=== PATIENT | male | born 1990 | race Caucasian/White ===

== ENCOUNTER 2016-06-18 07:21 | Emergency (ER) | payer BC, OTHER ==
[~2016-06-18] VITALS: Wt 91.0 kg
[2016-06-18] MEDS ORDERED: LIDOCAINE 1% (MDV) 20 ML INJ SC ONE (08:30)
--- NOTE | 2016-06-18 09:44 | RADRPT ---
PROCEDURE: XR left Hand. CLINICAL INDICATION: Left hand pain TECHNIQUE: Three views of the left hand were obtained. COMPARISON: No prior studies are available for comparison. FINDINGS: There is no evidence of acute fracture. Joint spaces are preserved. The soft tissues are grossly u nremarkable. IMPRESSION: No radiographic evidence of acute osseous abnormality of the left hand. RPTAT: UU .Aman Baca MD, MD Date Time Electronically viewed and signed by .Aman Baca MD, on 06/18/2016 09:43 .K/
[2016-06-18] MEDS ORDERED: CEPH-443 PO (09:54)
[2016-06-18] MEDS ORDERED: ACET325T33 PO (09:54)
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
== END 2016-06-18 10:00 | disposition home or self-care (01) ==
LOC: FTE 07:21
DX: S01.81XA Laceration without foreign body of other part of head, initial encounter (principal); S80.211A Abrasion, right knee, initial encounter; S80.212A Abrasion, left knee, initial encounter; V18.9XXA Unspecified pedal cyclist injured in noncollision transport accident in traffic accident, initial encounter

== ENCOUNTER 2016-06-25 11:32 | Emergency (ER) | payer BC ==
[~2016-06-25] VITALS: Ht 165.1 cm; Wt 62.5 kg
[~2016-06-25 11:32] MED LIST: ACET325T33 PO; CEPH-443 PO
[2016-06-25 11:37] VITALS: Ht 165.1 cm; Wt 62.5 kg
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
== END 2016-06-25 12:29 | disposition home or self-care (01) ==
LOC: FTE 11:32
DX: Z48.02 Encounter for removal of sutures (principal)
CPT/HCPCS: 99281

== ENCOUNTER 2017-02-04 10:50 | Emergency (ER) | payer BC ==
[~2017-02-04] VITALS: Wt 62.4 kg
[2017-02-04] MEDS ORDERED: ONDANSETRON 4 MG INJ IV STA (11:42)
[2017-02-04] MEDS ORDERED: SOD CHLORIDE 0.9% 1,000 ML IV STA (11:42)
[2017-02-04] MEDS ORDERED: morphine 4 MG/ML VIAL IV STA (11:42)
[2017-02-04 11:54] LABS: BASOPHIL # 0.1 10^3/ul (0.0-0.1); BASOPHILS % 0.5 % (0.0-2.0); EOSINOPHILS # 0.1 10^3/ul (0.0-0.5); EOSINOPHILS % 0.5 % (0.0-7.0); HEMATOCRIT 51.3 % (42.0-52.0); HEMOGLOBIN 18.1 g/dl (14.0-18.0); LYMPHOCYTES % 8.2 % (15.0-51.0); MEAN CORPUSCULAR HEMOGLOBIN 31.9 pg (29.0-33.0); MEAN CORPUSCULAR HGB CONC 35.3 g/dl (32.0-37.0); MEAN CORPUSCULAR VOLUME 90.3 fl (82.0-101.0); MONOCYTE # 1.1 10^3/ul (0.3-0.9); MONOCYTES % 8.5 % (0.0-11.0); NEUTROPHIL # 10.3 10^3/ul (1.6-7.5); NEUTROPHILS % 81.9 % (39.0-77.0); PLATELET COUNT 231 10^3/UL (140-415); RED BLOOD COUNT 5.68 10^6/ul (4.70-6.10); RED CELL DISTRIBUTION WIDTH 12.1 % (11.5-14.5); WHITE BLOOD COUNT 12.6 10^3/ul (4.8-10.8)
[2017-02-04 12:15] LABS: INR 0.95; PROTIME 12.7 Sec (12.2-14.2)
[2017-02-04 12:16] LABS: PARTIAL THROMBOPLASTIN TIME 26.1 Sec (25.0-35.0)
[2017-02-04 12:17] LABS: ALBUMIN 5.1 g/dl (3.3-4.9); ALBUMIN/GLOBULIN RATIO 1.21; BILIRUBIN,INDIRECT 0.8 mg/dl (0-1.1); BILIRUBIN,TOTAL 0.8 mg/dl (0.2-1.3); CALCIUM 9.3 mg/dl (8.4-10.2); CREATININE 0.75 mg/dl (0.61-1.24); POTASSIUM 5.2 mmol/L (3.5-5.1); TOTAL PROTEIN 9.3 g/dl (6.1-8.1)
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
[2017-02-04] MEDS ORDERED: KETOROLAC 30 MG INJ IV STA (13:27)
[2017-02-04] MEDS ORDERED: HYDR-906 PO (13:30)
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
--- NOTE | 2017-02-04 14:54 | RADRPT ---
PROCEDURE: XR Right Ankle. CLINICAL INDICATION: Right ankle pain. TECHNIQUE: 3 views. Frontal, lateral, and oblique. COMPARISON: None. FINDINGS: There is no fracture or dislocation. There is lateral soft tissue swelling. Articular surfaces are intact. There is no lytic or blastic lesion. There is no radiopaque foreign body. IMPRESSION: 1. Lateral soft tissue swelling. 2. Otherwise normal images of the right ankle. RPTAT: QQ .Aram Ojeda MD, MD Date Time Electronically viewed and signed by .Aram Ojeda MD, on 02/04/2017 14:54 .R/
[2017-02-04 14:56] VITALS: BP 127/65; PULSE 66; RESP 16; TEMP 98.3
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
== END 2017-02-04 14:58 | disposition home or self-care (01) ==
LOC: E/R 10:50
DX: S42.021A Displaced fracture of shaft of right clavicle, initial encounter for closed fracture (principal); S02.40DA Maxillary fracture, left side, initial encounter for closed fracture; R93.0 Abnormal findings on diagnostic imaging of skull and head, not elsewhere classified; R07.9 Chest pain, unspecified; V13.4XXA Pedal cycle driver injured in collision with car, pick-up truck or van in traffic accident, initial encounter
CPT/HCPCS: 70450; 70486; 71250; 73610; 80053; 85025; 85610; 85730; 93005; 96374; 96375; 99285; J1885; J2270; J2405; J7030

== ENCOUNTER 2017-03-15 14:30 | Emergency (ER) | payer BC ==
[~2017-03-15] VITALS: Ht 167.6 cm; Wt 62.6 kg
[~2017-03-15 14:30] MED LIST changes: +HYDR-906 PO
[2017-03-15 14:34] VITALS: Ht 167.6 cm; Wt 62.6 kg
[2017-03-15] MEDS ORDERED: LIDOCAINE 1% (MDV) 20 ML INJ SC ONE (16:30)
[2017-03-15] MEDS ORDERED: CEPH-443 PO (17:22)
[2017-03-15] MEDS ORDERED: IBUP800T25 PO (17:22)
[2017-03-15] MEDS ORDERED: SULF1TAB31 PO (17:22)
--- NOTE | 2017-03-15 17:45 | ERD ---
ER Documentation Chief Complaint Chief Complaint right axilla abscess HPI 26-year-old male complaining of painful bump on his right axillary area. Patient states that he noticed a pimple in the area 3 days ago, and last night the pain has become very intense, and the area has turned "purple". Patient had right clavicle surgery 1 month ago, has been in sling for his right arm in this time. Denies fever or chills. Denies drainage. ROS All systems reviewed and are negative except as per history of present illness. Medications Home Meds Active Scripts Ibuprofen* (Motrin*) 800 Mg Tab, 800 MG PO Q6H Y for PAIN AND OR ELEVATED TEMP, #30 TAB Prov:SERENE GOMEZ DRAWING HAND 03/15/17 Sulfamethoxazole/Trimethoprim* (Bactrim Ds* Tablet) 1 Each Tablet, 1 TAB PO BID , #14 TAB Prov:SERENE GOMEZ NP 03/15/17 Cephalexin* (Keflex*) 500 Mg Capsule, 500 MG PO QID for 7 Days, CAP Prov:SERENE GOMEZ NP 03/15/17 Hydrocodone/Acetaminophen ([place] 5-325 Tablet) 1 Each Tablet, 1 EACH PO Q6, #20 TAB Prov:RADHA ALBERT 02/04/17 Acetaminophen* (Tylenol*) 325 Mg Tablet, 2 TAB PO Q8 Y for PAIN AND OR ELEVATED TEMP, #20 TAB Prov:BENTON HARTMAN PA-C 06/18/16 Cephalexin* (Keflex*) 500 Mg Capsule, 500 MG PO QID for 7 Days, CAP Prov:BENTON HARTMAN PA-C 06/18/16 Allergies Allergies: Coded Allergies: No Known Allergy (Unverified , 06/25/16) PMhx/Soc History of Surgery: No Anesthesia Reaction: No Hx Neurological Disorder: No Hx Respiratory Disorders: No Hx Cardiac Disorders: No Hx Psychiatric Problems: No Hx Miscellaneous Medical Probl: No Hx Alcohol Use: Yes (socially ) Hx Substance Use: Yes ([facility] ) Hx Tobacco Use: No Smoking Status: Never smoker Physical Exam Vitals Vital Signs Date Time Temp Pulse Resp B/P Pulse Ox O2 Delivery O2 Flow Rate FiO2 03/15/17 14:34 99.1 90 18 131/77 98 Physical Exam General: Well-developed, well-nourished, conscious and coherent, in no distress Skin: Warm and dry without rash, good texture and turgor. A 2x4 cm area of erythematous induration is noted in the right axillary area. Fluctuance noted. Head: Normocephalic without evidence of trauma Eyes: Sclera and conjunctivae normal; pupils equal, round, and reactive to light; extraocular movements are intact Chest: Normal AP diameter. Good expansion without retractions. Nontender. Lungs are clear to auscultate bilaterally with good tidal volume Heart: Regular rate and rhythm. No murmur, rub, or gallops heard Extremities: Full range of motion. Good strength bilaterally. No clubbing, cyanosis, or edema. Peripheral pulses are intact. Sensation intact Neuro: Alert and oriented 4, GCS 15. Cranial nerves grossly intact. Motor and sensory exams nonfocal. Moves all extremities. Speech clear. Gait normal Results 24 hrs Current Medications Medications (Trade) Dose Ordered Sig/Luiz Route PRN Reason Start Time Stop Time Status Last Admin Dose Admin Lidocaine (Xylocaine 1% (Mdv) 20 ml) 20 ml ONCE ONCE SC 03/15/17 16:30 03/15/17 16:31 DC Procedures/MDM Procedure note: Incision and Drainage Verbal consent obtained for incision and drainage of patient's abscess. The area was prepped with Betadine. Lidocaine 1% was infiltrated for local anesthesia. After appropriate anesthesia, incision was made using #11 blade. Moderate amount of purulent discharge and sebum was drained from the abscess. The abscess was probed for loculation. It was then irrigated with 120 ml of NS solution. Iodoform 1/4" packing tape was inserted into the abscess. The wound was then cleaned and dressed. Patient tolerated procedure well. Well-appearing 26-year-old male present ED with infected sebaceous cyst. The cyst was excised and drained. There is some surrounding tissue cellulitis. P.o. antibiotics were prescribed for the patient. No sign of systemic infection. Patient appears well, stable for discharge and outpatient management. Medical decision making shared with patient and family. Education provided to patient and family. Patient and family expressed understanding of the plan. Medications on discharge: Bactrim DS, Keflex. Follow-up: Return to eating 2 days for wound check and dressing change. Disclaimer: Inadvertent spelling and grammatical errors are likely due to EHR/ dictation software use and do not reflect on the overall quality of patient care. Also, please note that the electronic time recorded on this note does not necessarily reflect the actual time of the patient encounter. Departure Diagnosis: Primary Impression: Infected sebaceous cyst Condition: Stable Patient Instructions: Sebaceous Cyst, Infected (I And D) Referrals: [facility] YOU HAVE RECEIVED A MEDICAL SCREENING EXAM AND THE RESULTS INDICATE THAT YOU DO NOT HAVE A CONDITION THAT REQUIRES URGENT TREATMENT IN THE EMERGENCY DEPARTMENT. FURTHER EVALUATION AND TREATMENT OF YOUR CONDITION CAN WAIT UNTIL YOU ARE SEEN IN YOUR DOCTORS OFFICE WITHIN THE NEXT 1-2 DAYS. IT IS YOUR RESPONSIBILITY TO MAKE AN APPOINTMENT FOR FOLOW-UP CARE. IF YOU HAVE A PRIMARY DOCTOR --you should call your primary doctor and schedule an appointment IF YOU DO NOT HAVE A PRIMARY DOCTOR YOU CAN CALL OUR PHYSICIAN REFERRAL HOTLINE AT IF YOU CAN NOT AFFORD TO SEE A PHYSICIAN YOU CAN CHOSE FROM THE FOLLOWING [facility] [address] [facility]. [facility] [address] [facility] [place] [address] [facility] [facility] [address] [facility]. [facility] [address] [facility]. [facility]. [address] Additional Instructions: Return to this facility in 2 DAYS for a follow-up exam.Return sooner if your condition worsens. SERENE GOMEZ NP Mar 15, 2017 17:45
== END 2017-03-15 17:45 | disposition home or self-care (01) ==
LOC: FTE 14:30
DX: L72.3 Sebaceous cyst (principal); L08.89 Other specified local infections of the skin and subcutaneous tissue

== ENCOUNTER 2017-03-17 14:47 | Emergency (ER) | payer BC ==
[~2017-03-17] VITALS: Ht 167.6 cm; Wt 63.0 kg
[~2017-03-17 14:47] MED LIST changes: +IBUP800T25 PO; +SULF1TAB31 PO
[2017-03-17 14:54] VITALS: Ht 167.6 cm; Wt 63.0 kg
--- NOTE | 2017-03-17 15:48 | ERD ---
ER Documentation Chief Complaint Chief Complaint for recehck on abcess rt axilla HPI Patient is a 26-year-old male who presents ED for wound recheck. Patient had incision and drainage of an abscess in his right axilla 2 days ago. Patient was prescribed Bactrim and Keflex. Patient reports taking this medication as prescribed. Patient states that the packing has fallen out snf. Patient denies any fevers, chills, nausea, vomiting, worsening redness, swelling or discharge. Patient states a month ago he did have right clavicle repair and reports wearing a sling at that time. ROS All systems reviewed and are negative except as per history of present illness. Medications Home Meds Active Scripts Ibuprofen* (Motrin*) 800 Mg Tab, 800 MG PO Q6H Y for PAIN AND OR ELEVATED TEMP, #30 TAB Prov:SERENE GOMEZ NP 03/15/17 Sulfamethoxazole/Trimethoprim* (Bactrim Ds* Tablet) 1 Each Tablet, 1 TAB PO BID , #14 TAB Prov:SERENE GOMEZ NP 03/15/17 Cephalexin* (Keflex*) 500 Mg Capsule, 500 MG PO QID for 7 Days, CAP Prov:SERENE GOMEZ CARBONIZER 03/15/17 Hydrocodone/Acetaminophen ([place] 5-325 Tablet) 1 Each Tablet, 1 EACH PO Q6, #20 TAB Prov:RADHA ALBERT 02/04/17 Acetaminophen* (Tylenol*) 325 Mg Tablet, 2 TAB PO Q8 Y for PAIN AND OR ELEVATED TEMP, #20 TAB Prov:BENTON HARTMAN PA-C 06/18/16 Cephalexin* (Keflex*) 500 Mg Capsule, 500 MG PO QID for 7 Days, CAP Prov:BENTON HARTMAN PA-C 06/18/16 Allergies Allergies: Coded Allergies: No Known Allergy (Unverified , 03/17/17) PMhx/Soc Medical and Surgical Hx: pt denies Medical Hx, pt denies Surgical Hx History of Surgery: No Anesthesia Reaction: No Hx Neurological Disorder: No Hx Respiratory Disorders: No Hx Cardiac Disorders: No Hx Psychiatric Problems: No Hx Miscellaneous Medical Probl: No Hx Alcohol Use: Yes (socially ) Hx Substance Use: Yes (marujuana ) Hx Tobacco Use: No Smoking Status: Never smoker Physical Exam Vitals Vital Signs Date Time Temp Pulse Resp B/P Pulse Ox O2 Delivery O2 Flow Rate FiO2 03/17/17 14:54 98.2 96 16 128/62 98 Physical Exam GENERAL: Well-developed, well-nourished male. Appears in no acute distress. HEAD: Normocephalic, atraumatic. EYES: Pupils are equally reactive bilaterally. EOMs grossly intact. No conjunctival erythema. ENT: Moist mucous membranes. No uvula deviation. No kissing tonsils. NECK: Supple. No meningismus. Normal range of motion of the neck. EXTREMITIES: Equal pulses bilaterally. No peripheral clubbing, cyanosis or edema. No unilateral leg swelling. NEUROLOGIC: Alert and oriented. Moving all four extremities without any difficulty. Normal speech. Steady gait. SKIN: Warm and dry. Packing noted inside of abscess site. No active bleeding or discharge. No surrounding erythema or swelling noted. No streaking. Area is minimally tender to palpation. Procedures/MDM MEDICAL DECISION MAKING: Patient is a 26-year-old male who presents today for wound recheck. Patient had incision and drainage done 2 days. Patient reports taking Bactrim and Keflex as prescribed. Patient denied any fevers at home. Vital signs were reviewed. Patient is afebrile. Patient is not hypoxic. The wound appears to be healing well with no signs of worsening infection. Packing was removed without any difficulty. Postprocedure wound care was discussed with the patient. At this time, patient presentation is most consistent with abscess. Patient advised to continue taking antibiotics as prescribed. Low suspicion for deep space infection, neurovascular injury. PRESCRIPTIONS: Continue to take antibiotics as prescribed. Complete full course. DISCHARGE: At this time, the patient is stable for discharge and outpatient management. Post-procedural wound care was discussed with the patient. I have instructed the patient to promptly return to the ER for any new or worsening symptoms including increasing pain, fever, warmth, redness or swelling. The patient and/ or family expressed understanding of and agreement with this plan. All questions were answered. Home care instructions were provided. Disclaimer: Inadvertent spelling and grammatical errors are likely due to EHR/ dictation software use and do not reflect on the overall quality of patient care. Also, please note that the electronic time recorded on this note does not necessarily reflect the actual time of the patient encounter. Departure Diagnosis: Primary Impression: Encounter for wound re-check Condition: Stable Patient Instructions: Wound Check, Lac F/U (No Infection) Referrals: [facility] YOU HAVE RECEIVED A MEDICAL SCREENING EXAM AND THE RESULTS INDICATE THAT YOU DO NOT HAVE A CONDITION THAT REQUIRES URGENT TREATMENT IN THE EMERGENCY DEPARTMENT. FURTHER EVALUATION AND TREATMENT OF YOUR CONDITION CAN WAIT UNTIL YOU ARE SEEN IN YOUR DOCTORS OFFICE WITHIN THE NEXT 1-2 DAYS. IT IS YOUR RESPONSIBILITY TO MAKE AN APPOINTMENT FOR FOLOW-UP CARE. IF YOU HAVE A PRIMARY DOCTOR --you should call your primary doctor and schedule an appointment IF YOU DO NOT HAVE A PRIMARY DOCTOR YOU CAN CALL OUR PHYSICIAN REFERRAL HOTLINE AT IF YOU CAN NOT AFFORD TO SEE A PHYSICIAN YOU CAN CHOSE FROM THE FOLLOWING [facility] [address] [facility]. [facility] [address] [facility] [address] [facility] [address] [facility] [address] [facility]. [facility] [address] [facility]. [facility] YOU HAVE RECEIVED A MEDICAL SCREENING EXAM AND THE RESULTS INDICATE THAT YOU DO NOT HAVE A CONDITION THAT REQUIRES URGENT TREATMENT IN THE EMERGENCY DEPARTMENT. FURTHER EVALUATION AND TREATMENT OF YOUR CONDITION CAN WAIT UNTIL YOU ARE SEEN IN YOUR DOCTORS OFFICE WITHIN THE NEXT 1-2 DAYS. IT IS YOUR RESPONSIBILITY TO MAKE AN APPOINTMENT FOR FOLOW-UP CARE. IF YOU HAVE A PRIMARY DOCTOR --you should call your primary doctor and schedule and appointment IF YOU DO NOT HAVE A PRIMARY DOCTOR YOU CAN CALL OUR PHYSICIAN REFERRAL HOTLINE AT . IF YOU CAN NOT AFFORD TO SEE A PHYSICIAN YOU CAN CHOSE FROM THE FOLLOWING [facility] INSTITUTIONS: [facility] [address] [place] [address] [facility] [address] [place] [address] [facility] [address] [place] [address] Additional Instructions: Continue antibiotics as prescribed. Complete full course of antibiotics. Call your primary care doctor TOMORROW for an appointment during the next 1-2 days.See the doctor sooner or return here if your condition worsens before your appointment time. MONI MAURER PA-C Mar 17, 2017 15:48
== END 2017-03-17 16:35 | disposition home or self-care (01) ==
LOC: FTE 14:47
DX: Z48.01 Encounter for change or removal of surgical wound dressing (principal)
CPT/HCPCS: 99281

== ENCOUNTER 2017-07-23 19:46 | Emergency (ER) | END 2017-07-24 03:03 | disposition home or self-care (01) ==

== ENCOUNTER 2017-10-01 17:57 | Emergency (ER) | END 2017-10-01 22:47 | disposition home or self-care (01) ==